=== PATIENT | female | born 1975 | race American Indian/Alaskan Native ===

== ENCOUNTER 2019-06-14 01:41 | Emergency (ER) | payer BC ==
[2019-06-14 02:23] LABS: Basophils # (Auto) 0.1 K/mm3 (0.0-0.1); Eosinophils # (Auto) 0.2 K/mm3 (0.0-0.4); Eosinophils % (Auto) 4.3 % (0.0-4.3); Hematocrit 36.9 % (30.3-42.9); Hemoglobin 11.7 gm/dl (10.1-14.3); Lymphocytes % (Auto) 36.9 % (13.4-35.0); Mean Corpuscular HGB Conc 32 % (30-34); Mean Corpuscular Volume 79 fl (79-97); Monocytes # (Auto) 0.5 K/mm3 (0.0-0.8); Platelet Count 273 K/mm3 (140-440); Red Blood Count 4.66 M/mm3 (3.65-5.03)
[2019-06-14 02:43] LABS: BUN/Creatinine Ratio 15; Blood Urea Nitrogen 9 mg/dL (7-17); Calcium 8.5 mg/dL (8.4-10.2); Hemolysis Index 11
--- NOTE | 2019-06-14 03:06 | XRay Report ---
CHEST 1 VIEW INDICATION / CLINICAL INFORMATION: Chest Pain. COMPARISON: None available. FINDINGS: SUPPORT DEVICES: None. HEART / MEDIASTINUM: No significant abnormality. LUNGS / PLEURA: No significant pulmonary or pleural abnormality. No pneumothorax. ADDITIONAL FINDINGS: No significant additional findings. IMPRESSION: 1. No acute findings. Signer Name: Yadira Campa MD Signed: 06/14/2019 3:01 AM Workstation Name: [id number]
[2019-06-14] MEDS ORDERED: ACETAMINOPHEN 325 MG TAB PO ONE (04:20)
[2019-06-14] MEDS ORDERED: FAMOTIDINE 20 MG TAB PO ONE (04:20)
[2019-06-14] MEDS ORDERED: KETOROLAC 30 MG/1 ML INJ IM ONE (04:20)
--- NOTE | 2019-06-14 04:21 | Emergency Department Report ---
ED Chest Pain HPI - General Chief Complaint: Chest Pain Stated Complaint: CHEST PAIN Time Seen by Provider: 06/14/19 03:57 Source: patient, RN notes reviewed Mode of arrival: Ambulatory Limitations: No Limitations - History of Present Illness Initial Comments: During the history and physical examination, I am credit underwriter and escorted by ER bank advisor Jarred Leyva This is a 44-year-old female who is not known to this provider previously. She states that she is not , states she has not delivered her given within the past 6 weeks. She denies DVT, pulmonary embolus risk factors, states she does not take oral contraceptives. She presents to the ER with a complaint of central reproducible chest wall pain, present intermittently over the past 24 hours. The pain is sharp and throbbing, increases with palpation and decreases with rest. It does not radiate to the back, arms and neck. There is no vomiting, diaphoresis, shortness of breath, or recent aspirin consumption. There is no family history of heart disease or venous thromboembolism that she is aware of. She denies additional complaints at this time. MD Complaint: chest pain -: Gradual, days(s) (1) Onset: during rest Pain Location: substernal Pain Radiation: none Quality: aching Consistency: intermittent Improves With: rest Worsens With: palpation re: denies: nausea, vomting, diaphoresis, dyspnea, sense of impending doom Other Symptoms: denies: cough, fever, syncope, rash, acid taste in mouth, leg swelling, palpitations, burping Treatments Prior to Arrival: none Aspirin use within the Past 7 Days: (0) No - Related Data On Oral Contraceptives: No Previous Rx's Medication Instructions Recorded Last Taken Type Acetaminophen [Non-Aspirin Extra 500 mg PO Q6HR PRN #30 tablet 06/14/19 Unknown Rx Strength] Famotidine [Pepcid] 20 mg PO BID #60 tablet 06/14/19 Unknown Rx Ibuprofen [Motrin] 600 mg PO Q8H PRN #30 tablet 06/14/19 Unknown Rx Allergies Allergy/AdvReac Type Severity Reaction Status Date / Time No Known Allergies Allergy Unverified 06/14/19 01:51 Heart Score - HEART Score History: Slightly suspicious EKG: Normal Age: < 45 Risk factors: 1-2 risk factors Troponin: < normal limit HEART Score: 1 - Critical Actions Critical Actions: 0-3 pts:0.9-1.7%risk of adverse cardiac event.Candidate for discharge ED Review of Systems ROS: Stated complaint: CHEST PAIN Other details as noted in HPI Constitutional: denies: diaphoresis, fever Eyes: denies: eye discharge ENT: denies: epistaxis Respiratory: denies: shortness of breath, SOB with exertion, SOB at rest Cardiovascular: chest pain Gastrointestinal: denies: nausea, vomiting Musculoskeletal: denies: back pain Skin: denies: lesions Neurological: denies: weakness ED Past Medical Hx - Past Medical History Previous Medical History?: Yes Hx Hypertension: Yes - Surgical History Past Surgical History?: Yes Additional Surgical History: C sec X 2 - Social History Smoking Status: Never Smoker Substance Use Type: None - Medications Home Medications: Home Medications Medication Instructions Recorded Confirmed Last Taken Type Acetaminophen [Non-Aspirin Extra 500 mg PO Q6HR PRN #30 tablet 06/14/19 Unknown Rx Strength] Famotidine [Pepcid] 20 mg PO BID #60 tablet 06/14/19 Unknown Rx Ibuprofen [Motrin] 600 mg PO Q8H PRN #30 tablet 06/14/19 Unknown Rx ED Physical Exam - General Limitations: No Limitations General appearance: alert, in no apparent distress, obese - Head Head exam: Present: atraumatic, normocephalic - Eye Eye exam: Present: normal appearance, EOMI - ENT ENT exam: Present: normal exam, normal orophraynx, mucous membranes moist, normal external ear exam - Neck Neck exam: Present: normal inspection, full ROM. Absent: tenderness, meningismus - Respiratory Respiratory exam: Present: normal lung sounds bilaterally, chest wall tenderness, other ( credit underwriter and escorted by ER bank advisor Jarred Leyva .there is no breast tenderness. There is no breast redness, pus or streaking). Absent: respiratory distress, wheezes, rales, rhonchi, stridor - Cardiovascular Cardiovascular Exam: Present: regular rate, normal rhythm, normal heart sounds. Absent: bradycardia, tachycardia, irregular rhythm, systolic murmur, diastolic murmur, rubs, gallop - GI/Abdominal GI/Abdominal exam: Present: soft. Absent: distended, tenderness, guarding, rebound, rigid, pulsatile mass - Extremities Exam Extremities exam: Present: normal inspection, full ROM, other (2+ pulses noted in the bilateral upper, lower extremities. Compartments soft. No long bony tenderness. The pelvis is stable.). Absent: pedal edema, joint swelling, calf tenderness - Back Exam Back exam: Present: normal inspection, full ROM. Absent: tenderness, CVA tenderness (R), CVA tenderness (L), paraspinal tenderness, vertebral tenderness - Neurological Exam Neurological exam: Present: alert, oriented X3, normal gait, other (Extraocular movements intact. Tongue midline. No facial droop. Facial sensation intact to light touch in the V1, V2, V3 distribution bilaterally. 5 and 5 strength in 4 extremities.. Sensation is intact to light touch in 4 extremities.). Absent: motor sensory deficit - Psychiatric Psychiatric exam: Present: normal affect, normal mood - Skin Skin exam: Present: warm, dry, intact, normal color. Absent: rash ED Course Vital Signs 06/14/19 06/14/19 06/14/19 01:48 04:00 04:44 Temperature 98.3 F 97.8 F Pulse Rate 89 88 Respiratory 20 17 17 Rate Blood Pressure 150/95 Blood Pressure 112/61 [Right] O2 Sat by Pulse 96 99 Oximetry 06/14/19 06/14/19 06/14/19 04:45 04:46 05:16 Temperature Pulse Rate 83 Respiratory 12 18 18 Rate Blood Pressure Blood Pressure 141/59 [Right] O2 Sat by Pulse 99 Oximetry 06/14/19 06/14/19 05:44 06:25 Temperature Pulse Rate 89 Respiratory 18 16 Rate Blood Pressure Blood Pressure 136/79 [Right] O2 Sat by Pulse 99 Oximetry - Reevaluation(s) Reevaluation #1: 06/14/19 05:36 EKG is unchanged 2. Troponin is negative 2. Patient resting comfortably and in no acute distress. Repeat vital signs reviewed and appreciated. Patient medically suitable to follow-up with an outpatient position classification specialist completed in outpatient risk stratification. ANY score - Any Score Age > 65: (0) No Aspirin use within the Past 7 Days: (0) No 3 or more CAD Risk Factors: (0) No 2 or more Angina events in past 24 hrs: (0) No Known CAD with more than 50% Stenosis: (0) No Elevated Cardiac Markers: (0) No ST Deviation Greater than 0.5mm: (0) No ANY Score: 0 ED Medical Decision Making - Lab Data Result diagrams: 06/14/19 01:56 06/14/19 01:56 Vital Signs 06/14/19 01:48 Temperature 98.3 F Pulse Rate 89 Respiratory 20 Rate Blood Pressure 150/95 O2 Sat by Pulse 96 Oximetry Lab Results 06/14/19 06/14/19 06/14/19 Range/Units 01:56 01:56 01:56 WBC 5.4 (4.5-11.0) K/mm3 RBC 4.66 (3.65-5.03) M/mm3 Hgb 11.7 (10.1-14.3) gm/dl Hct 36.9 (30.3-42.9) % MCV 79 (79-97) fl MCH 25 L (28-32) pg MCHC 32 (30-34) % RDW 15.0 (13.2-15.2) % Plt Count 273 (140-440) K/mm3 Lymph % (Auto) 36.9 H (13.4-35.0) % Coffey % (Auto) 9.0 H (0.0-7.3) % Eos % (Auto) 4.3 (0.0-4.3) % Baso % (Auto) 1.0 (0.0-1.8) % Lymph # 2.0 (1.2-5.4) K/mm3 Coffey # 0.5 (0.0-0.8) K/mm3 Eos # 0.2 (0.0-0.4) K/mm3 Baso # 0.1 (0.0-0.1) K/mm3 Seg Neutrophils % 48.8 (40.0-70.0) % Seg Neutrophils # 2.6 (1.8-7.7) K/mm3 Sodium 138 (137-145) mmol/L Potassium 3.8 (3.6-5.0) mmol/L Chloride 101.6 (98-107) mmol/L Carbon Dioxide 29 (22-30) mmol/L Anion Gap 11 mmol/L BUN 9 (7-17) mg/dL Creatinine 0.6 L (0.7-1.2) mg/dL Estimated GFR > 60 ml/min BUN/Creatinine Ratio 15 % Glucose 125 H (65-100) mg/dL Calcium 8.5 (8.4-10.2) mg/dL Troponin T < 0.010 (0.00-0.029) ng/mL HCG, Qual Negative (Negative) - EKG Data -: EKG Interpreted by Me EKG shows normal: sinus rhythm Rate: normal - EKG Data When compared to previous EKG there are: previous EKG unavailable Interpretation: normal EKG 06/14/19 04:43 EKG #1 shows a sinus rhythm, 82 bpm, normal axis, normal intervals, QTC within normal limits, the EKG is unremarkable, and not consistent with ST elevation myocardial infarction. EKG #2 appears to be unchanged from prior. Neither EKG is consistent with ST elevation myocardial infarction. - Radiology Data Radiology results: pending, report reviewed, image reviewed X-ray of the chest is negative for acute disease - Medical Decision Making Differential diagnosis, including not limited to, costochondritis, GERD, gastr itis, hiatal hernia, pneumonia, pericarditis, myocarditis, acute coronary syndrome Assessment and plan: 44-year-old female, not tachycardic, not hypoxic, not tachypnea, low risk by well's criteria, perc negative, with reproducible chest wall pain over the past 24 hours, troponin negative 1 in the context of 24 hours of symptoms, EKG unchanged 2. Patient at low risk for major adverse cardiac event. We will treat her symptoms. Repeat troponin ordered. As per this institution's current policy and protocol, for patients at low risk for major adverse cardiac event as per the heart score, patient will be provided with close outpatient follow-up with cardiology to complete her cardiac risk s tratification. Critical care attestation.: If time is entered above; I have spent that time in minutes in the direct care of this critically ill patient, excluding procedure time. ED Disposition Clinical Impression: Chest wall pain Disposition: DC-01 TO HOME OR SELFCARE Is pt being admited?: No Does the pt Need Aspirin: No Condition: Stable Instructions: Costochondritis (ED) Additional Instructions: Rest, avoid heavy lifting, and avoid strenuous physical activities. Take the pain medications as needed/directed. Recommend follow-up with an outpatient primary care doctor or position classification specialist within the next 3-5 days. Return to the emergency room right away with new pain, worsened pain, migration of pain, projectile vomiting, change in mental status, confusion, inability to tolerate liquid feeds, new, worsening or different symptoms not present on the initial emergency room evaluation. Prescriptions: Ibuprofen [Motrin] 600 mg PO Q8H PRN #30 tablet PRN Reason: Pain Acetaminophen [Non-Aspirin Extra Strength] 500 mg PO Q6HR PRN #30 tablet PRN Reason: Pain , Severe (7-10) Famotidine [Pepcid] 20 mg PO BID #60 tablet Referrals: [facility] [Provider Group] - 3-5 Days [facility] [Provider Group] - 3-5 Days Forms: Work/School Release Form(ED)
[2019-06-14 06:34] VITALS: BP 136/79
== END 2019-06-14 06:25 | disposition home or self-care (01) ==
LOC: ED 01:41
DX: R07.89 Other chest pain (principal); I10 Essential (primary) hypertension; Z79.899 Other long term (current) drug therapy
CPT/HCPCS: 36415; 71045; 80048; 84484; 84703; 85025; 93005; 93010; 96372; 99284; J1885